=== PATIENT | male | born 1930 | race Caucasian/White ===

== ENCOUNTER 2017-01-31 15:40 | Inpatient (IN) | payer OTHER ==
[~2017-01-31] VITALS: Ht 177.8 cm; Wt 70.3 kg
[~2017-01-31 15:40] MED LIST: DONE5TAB3 PO; HYDR12.585 PO; LEVO112T5 PO; TRIA50CA PO
--- NOTE | 2017-01-31 15:41 | NUR ---
Arrived via BLS ambulance with compliant of increased shaking. Febrile on arrival 102.4F. Patient to ER bed 6 to gown for evaluation. Side rails up. Report given to Carmencita SANTIAGO.
[2017-01-31 15:47] VITALS: BP 126/68; PULSE 104; RESP 20; TEMP 102.4; O2SAT 99
[2017-01-31] MEDS ORDERED: PIPERACILLIN/TAZO 3.38 GM in NS 50 ML IV ONE (16:00)
--- NOTE | 2017-01-31 16:05 | NUR ---
ER Dr. Cannon at bedside examining patient.
[2017-01-31 16:26] LABS: ANION GAP 10 (5-15); CALCIUM 8.9 mg/dL (8.4-11.0); CHLORIDE 101 mmol/L (98-107); CREATININE 1.63 mg/dL (0.55-1.30); GLUCOSE 142 mg/dL (70-99); SODIUM SERUM 138 mmol/L (136-145); UREA NITROGEN, BLOOD 32 mg/dL (8-21)
[2017-01-31 16:30] LABS: BASOPHILS # (AUTO) 0.1 K/uL (0.0-0.2); BASOPHILS % (AUTO) 0.3 % (0.0-2.0); EOSINOPHILS % (AUTO) 0.1 % (0.0-4.0); HEMATOCRIT 30.5 % (36-54); HEMOGLOBIN 9.9 g/dL (14.0-18.0); LYMPHOCYTES # (AUTO) 0.3 K/uL (1.0-5.5); MEAN CORPUSCULAR HEMOGLOBIN 25 pg (27-31); MEAN CORPUSCULAR HGB CONC 32 % (32-36); MEAN CORPUSCULAR VOLUME 78 fL (79.0-98.0); MONOCYTES # (AUTO) 0.9 K/uL (0.0-1.0); MONOCYTES % (AUTO) 5.3 % (1.7-9.3); NEUTROPHILS # (AUTO) 15.9 K/uL (1.8-7.7); NEUTROPHILS % (AUTO) 92.3 % (40.0-70.0); PLATELET COUNT (AUTO) 212 K/uL (130-430); RED BLOOD CELL COUNT(AUTO) 3.93 MIL/uL (4.2-6.2); RED CELL DISTRIBUTION WIDTH 20.4 % (9.0-15.0); WHITE BLOOD COUNT (AUTO) 17.2 K/uL (4.8-10.8)
[2017-01-31] MEDS ORDERED: ACETAMINOPHEN 650 MG/20.3 ML UDC PO ONE (16:30)
[2017-01-31 16:31] LABS: ALANINE AMINOTRANSFERASE 25 U/L (12-78); ALBUMIN 3.2 g/dL (3.4-4.8); ASPARTATE AMINOTRANSFERASE 32 U/L (10-37); INR 1.1 (0.80-1.20); PROTHROMBIN TIME 11.6 SECS (9.5-12.5); TOTAL BILIRUBIN 0.5 mg/dL (0.0-1.0)
[2017-01-31 16:44] LABS: BILIRUBIN,URINE NEGATIVE (NEGATIVE); CLARITY/URINE CLEAR (CLEAR); COLOR,URINE YELLOW (YELLOW); GLUCOSE,URINE NEGATIVE (NEGATIVE); KETONES,URINE TRACE (NEGATIVE); LEUKOCYTE ESTERASE ,URINE TRACE (NEGATIVE); NITRITE, URINE NEGATIVE (NEGATIVE); PH,URINE 5.5 (5.0-8.0); PROTEIN URINE NEGATIVE (NEGATIVE); UROBILINOGEN,URINE 0.2 (0.2-1.0)
[2017-01-31 17:00] LABS: BLOOD, URINE TRACE (NEGATIVE)
--- NOTE | 2017-01-31 17:03 | NUR ---
Michael tamez in ED - 01/31/17 at 1920 by [email or web address] Pt on stable condition, shaking at this time, tylenol administered for fever control.
--- NOTE | 2017-01-31 17:03 | NUR ---
Pt on stable condition, A&OX4,pt requesting water, VS WNL.
[2017-01-31] MEDS ORDERED: POTASSIUM CHLORIDE 20 MEQ TAB.PRT.SR PO ONE (17:15)
[2017-01-31] MEDS ORDERED: POTASSIUM CHLORIDE 40 MEQ in NS 250 ML IV ONE (17:15)
[2017-01-31] MEDS ORDERED: ALBUTEROL SULFATE 0.083% 2.5 MG/3 ML VIAL.NEB INH ONE (17:15)
[2017-01-31 17:25] LABS: BACTERIA,URINE FEW /HPF (None Seen); MUCUS,URINE 1+ /LPF (None Seen); RBC,URINE 0-3 /HPF (0-3); WBC,URINE 0-3 /HPF (0-3)
[2017-01-31] MEDS ORDERED: *LOVENOX 1MG/KG Q12H/PHARMACY XX ONE (18:30)
--- NOTE | 2017-01-31 18:55 | NUR ---
ADMIT NOTE Received pt from ER to the floor with a diagnosis of cellulitis, sepsis. Admission process initiated. patient oriented to pain management, safety and call light-teach back done.
--- NOTE | 2017-01-31 19:00 | NUR ---
Patient will be admitted to care of [facility]. Admitted to medsurg unit. Will go to room 121A. Belongings list completed. Summary report printed. Report given to Admitting RN.
[2017-01-31 19:42] VITALS: BP 114/50; PULSE 82; RESP 18; TEMP 100.1; O2SAT 95
--- NOTE | 2017-01-31 19:50 | NUR ---
initial nursing notes: Patient is awake. Patient's IV access on the right AC intact. Patient's RLE is red and swollen. Patient is being admitted for cellulitis and sepsis. Patient has history of Parkinson and dementia. Patient has scabs on the scalp.
--- NOTE | 2017-01-31 21:50 | NUR ---
nursing rounds: Reoriented patient to place and reason for being in the hospitalized, since patient has periods of forgetfulness. Instructed patient regarding proper use of call light.
[2017-01-31] MEDS: VANCOMYCIN HCL 1,000 MG in NS 250 ML IV SCH (22:03)
[2017-01-31] MEDS: D5/0.45 NS 1,000 ML IV SCH (22:04)
[2017-01-31] MEDS ORDERED: ACETAMINOPHEN 500 MG TABLET PO PRN ×2 (22:30)
[2017-01-31] MEDS: ENOXAPARIN SODIUM 80 MG/0.8 ML SYRINGE SUBCUT SCH (22:31)
--- NOTE | 2017-01-31 23:50 | NUR ---
nursing rounds: Patient is asleep in bed. Kept bed alarm on.
[2017-02-01 00:03] VITALS: BP 94/47; PULSE 78; RESP 18; TEMP 99.8; O2SAT 97
[2017-02-01] MEDS: cefTRIAXone 1 GM IVPB PREMIX 50 ML IV SCH ×2 (00:25→18:00)
--- NOTE | 2017-02-01 01:50 | NUR ---
nursing rounds: Patient calmly resting in bed. Patient has no shortness of breath.
[2017-02-01 03:34] VITALS: BP 104/53; PULSE 64; RESP 16; TEMP 99.8; O2SAT 94
--- NOTE | 2017-02-01 03:50 | NUR ---
nursing rounds: Patient is sleeping in bed. Kept siderails up X 3 for patient's safety.
--- NOTE | 2017-02-01 05:50 | NUR ---
nursing rounds: Patient calmly resting in bed. Patient has no respiratory distress.
[2017-02-01 06:29] LABS: HEMOGLOBIN 9.3 g/dL (14.0-18.0); MEAN CORPUSCULAR HEMOGLOBIN 25 pg (27-31); MEAN CORPUSCULAR HGB CONC 31 % (32-36); MEAN CORPUSCULAR VOLUME 80 fL (79.0-98.0); PLATELET COUNT (AUTO) 203 K/uL (130-430); RED BLOOD CELL COUNT(AUTO) 3.74 MIL/uL (4.2-6.2); WHITE BLOOD COUNT (AUTO) 19.7 K/uL (4.8-10.8)
[2017-02-01 06:35] LABS: CREATININE 1.72 mg/dL (0.55-1.30); POTASSIUM 3.7 mmol/L (3.5-5.1)
[2017-02-01 07:01] LABS: ANION GAP 9 (5-15); CALCIUM 8.7 mg/dL (8.4-11.0); CHLORIDE 105 mmol/L (98-107); GLUCOSE 112 mg/dL (70-99); PHOSPHORUS 3.5 mg/dL (2.7-4.5); SODIUM SERUM 141 mmol/L (136-145); UREA NITROGEN, BLOOD 31 mg/dL (8-21)
--- NOTE | 2017-02-01 07:28 | NUR ---
closing nursing notes: Patient calmly resting in bed. Patient is in no acute respiratory distress. Vital signs stable. No episodes of fall and no injuries throughout the echocardiograph tech. Provided nursing report to incoming morning shift nurse, JAKC Beltrán, at patient's bedside.
[2017-02-01 07:49] VITALS: BP 99/51; PULSE 75; RESP 18; TEMP 99.2; O2SAT 94
--- NOTE | 2017-02-01 08:00 | NUR ---
NOTE PT SITTING UP IN BED EATING HIS BREAKFAST. NO SOB/RESP DISTRESS OR PAIN/DISCOMFORT NOTED AT THIS TIME. IVF'S INFUSING WELL THROUGH RIGHT IV SITE. PT HAS SOME SCABS ON HIS FOREHEAD WHICH ARE DRY AND INTACT. PT'S RT. LOWER LEG AND MESFIN AREAS ARE REDDENED, Z-GUARD APPLIED AND AREAS KEPT DRY. NO NEEDS NOTED AT THIS TIME. CALL LIGHT WITHIN REACH.
[2017-02-01] MEDS: ENOXAPARIN SODIUM 80 MG/0.8 ML SYRINGE SUBCUT SCH (08:19)
[2017-02-01 08:29] LABS: ATYPICAL LYMPHOCYTES % 0 % (0-0); BAND % (MANUAL) 4 % (0-6); BASOPHILS % (MANUAL) 0 % (0-2); EOSINOPHILS % (MANUAL) 0 % (0-7); LYMPHOCYTES % (MANUAL) 9 % (20-46); MONOCYTES % (MANUAL) 6 % (0-11)
--- NOTE | 2017-02-01 08:55 | NUR ---
Nutrition Update Kristofer Scale 17 noted. Pt admitted for cellulitis, sepsis. Diet: 2gm Na BMI: 22.2 kg/m2 RD to follow per nutrition care standards.
[2017-02-01] MEDS ORDERED: PANTOPRAZOLE SODIUM 40 MG TAB PO SCH (09:00)
--- NOTE | 2017-02-01 10:00 | NUR ---
NOTE PT RESTING IN BED. NO NEEDS NOTED AT THIS TIME. CALL LIGHT WITHIN REACH. PT CHECKED ON Q1' AND PRN FOR CARE AND NEEDS.
[2017-02-01 11:31] VITALS: BP 103/48; PULSE 68; RESP 19; TEMP 98.4; O2SAT 93
--- NOTE | 2017-02-01 13:00 | NUR ---
NOTE PT'S DAUGHTER JUSTICE HAS BEEN AT BEDSIDE VISITING WITH HER FATHER. PT'S DAUGHTER STATED THAT HER FATHER HAS NOT BEEN TAKING HIS MEDICATIONS THE LAST 4 DAYS. PT SAT UP IN BED AND ATE SOME OF HIS LUNCH TRAY. PT HAS BEEN HAVING INCONTINENCE CARE Q1' AND PRN NEEDED FOR INCONTINENCE OF URINE AND STOOL. NO SOB/RESP DISTRESS OR PAIN/DISCOMFORT NOTED AT THIS TIME. CALL LIGHT WITHIN REACH.
[2017-02-01 14:03] VITALS: Ht 177.8 cm; Wt 70.3 kg
[2017-02-01 15:45] VITALS: BP 107/50; PULSE 69; RESP 19; TEMP 100.3; O2SAT 96
--- NOTE | 2017-02-01 15:59 | NUR ---
NOTE PT'S DAUGHTER WAS CALLED AND NOTIFIED THAT PT'S MEDICATION LIST FROM PHARMACY HAS NOT BEEN RECEIVED OF THIS TIME. PT'S DAUGHTER WILL CALL PHARMACY AGAIN TO RE FAX THE PT'S MEDICATION LIST TO US. PT'S DAUGHTER HAD GONE HOME AROUND HALF AN HOUR AGO. CALL LIGHT WITHIN REACH.
[2017-02-01] MEDS ORDERED: PANT40TA4 PO (17:05)
[2017-02-01] MEDS ORDERED: APIX2.5T PO (17:05)
[2017-02-01] MEDS: D5/0.45 NS 1,000 ML IV SCH ×2 (17:48→23:10)
--- NOTE | 2017-02-01 18:10 | NUR ---
NOTE PT RESTING IN BED. PT ATE HIS DINNER AND NOW RESTING. NO SOB/RESP DISTRESS OR PAIN/DISCOMFORT NOTED AT THIS TIME. PT WAS CHECKED ON Q1' AND PRN FOR NEEDS AND CARE. PT GIVEN HYGIENE CARE FOR INCONTINENCE ALL SHIFT. NO NEEDS NOTED AT THIS TIME. IVF'S INFUSING WELL THROUGH RIGHT IV SITE. CALL LIGHT WITHIN REACH AT THIS TIME.
[2017-02-01] MEDS: VANCOMYCIN HCL 1,000 MG in NS 250 ML IV SCH (18:32)
--- NOTE | 2017-02-01 19:30 | NUR ---
initial nursing notes: Patient is awake. Patient watching television. Elevated patient's RLE to decrease swelling. Patient's IV fluid is infusing on the right hand IV access.
[2017-02-01 20:15] VITALS: BP 105/52; PULSE 67; RESP 16; TEMP 99.9; O2SAT 94
--- NOTE | 2017-02-01 21:30 | NUR ---
nursing rounds: Patient has periods of forgetfulness. Reoriented patient to place, time and reason for being in the hospital. Kept bed alarm on.
[2017-02-01] MEDS: APIXABAN 2.5 MG TABLET PO SCH (22:26)
[2017-02-01] MEDS: DONEPEZIL HCL 5 MG TABLET (ARICEPT) PO SCH (22:26)
[2017-02-01] MEDS: AMPICILLIN SODIUM/SULBACTAM NA 1.5 GM in NS 50 ML IV SCH (23:10)
--- NOTE | 2017-02-01 23:30 | NUR ---
nursing rounds: Patient is sleeping in bed. Kept siderails up X 3 for patient's safety.
[2017-02-02 00:16] VITALS: BP 108/58; PULSE 68; RESP 18; TEMP 99.2; O2SAT 97
--- NOTE | 2017-02-02 01:30 | NUR ---
nursing rounds: Patient woke up trying to get out of bed to go to the bathroom to void. Patient stated that he forgot, he cannot ambulate due to his swollen RLE. Reminded patient that a urinal has been provided at the patient's bedside. Patient able to use urinal.
--- NOTE | 2017-02-02 01:30 | NUR ---
nursing rounds: Patient is sleeping in bed. Kept siderails up X 3 for patient's safety.
--- NOTE | 2017-02-02 03:30 | NUR ---
nursing rounds: Patient is asleep in bed. Patient has no shortness of breath.
[2017-02-02 04:25] VITALS: BP 116/62; PULSE 72; RESP 17; TEMP 98.9; O2SAT 98
--- NOTE | 2017-02-02 05:30 | NUR ---
nursing rounds: Patient calmly resting in bed. Patient has no respiratory distress.
[2017-02-02] MEDS: LEVOTHYROXINE SODIUM 0.112 MG TABLET PO SCH (06:10)
[2017-02-02 06:48] LABS: BASOPHILS % (AUTO) 0.1 % (0.0-2.0); EOSINOPHILS # (AUTO) 0.1 K/uL (0.0-0.4); EOSINOPHILS % (AUTO) 0.4 % (0.0-4.0); HEMATOCRIT 28.7 % (36-54); HEMOGLOBIN 8.9 g/dL (14.0-18.0); LYMPHOCYTES # (AUTO) 0.8 K/uL (1.0-5.5); LYMPHOCYTES % (AUTO) 4.7 % (20.5-51.5); MEAN CORPUSCULAR HEMOGLOBIN 25 pg (27-31); MEAN CORPUSCULAR HGB CONC 31 % (32-36); MEAN CORPUSCULAR VOLUME 80 fL (79.0-98.0); MONOCYTES # (AUTO) 0.9 K/uL (0.0-1.0); MONOCYTES % (AUTO) 5.5 % (1.7-9.3); NEUTROPHILS % (AUTO) 89.3 % (40.0-70.0); PLATELET COUNT (AUTO) 190 K/uL (130-430); WHITE BLOOD COUNT (AUTO) 16.8 K/uL (4.8-10.8)
[2017-02-02 07:01] LABS: ALANINE AMINOTRANSFERASE 34 U/L (12-78); ALBUMIN 2.2 g/dL (3.4-4.8); ANION GAP 6 (5-15); ASPARTATE AMINOTRANSFERASE 88 U/L (10-37); CALCIUM 8.3 mg/dL (8.4-11.0); CHLORIDE 105 mmol/L (98-107); CREATININE 1.34 mg/dL (0.55-1.30); GLUCOSE 111 mg/dL (70-99); POTASSIUM 3.2 mmol/L (3.5-5.1); SODIUM SERUM 139 mmol/L (136-145); TOTAL BILIRUBIN 0.4 mg/dL (0.0-1.0); UREA NITROGEN, BLOOD 26 mg/dL (8-21)
--- NOTE | 2017-02-02 07:31 | NUR ---
closing nursing notes: Patient calmly resting in bed. Patient is in no acute respiratory distress. Vital signs stable. No episodes of fall and no injuries throughout the overnight cashier. Provided nursing report to incoming morning shift nurse, JACK Beltrán, at patient's bedside.
[2017-02-02 08:00] VITALS: BP 148/67; PULSE 82; RESP 18; TEMP 99; O2SAT 99
--- NOTE | 2017-02-02 08:00 | NUR ---
NOTE PT SITTING UP IN BED EATING HIS BREAKFAST AT THIS TIME. NO SOB/RESP DISTRESS OR PAIN/DISCOMFORT NOTED AT THIS TIME. IVF'S INFUSING WELL THROUGH RIGHT HAND IV SITE. CALL LIGHT WITHIN REACH.
[2017-02-02] MEDS: AMPICILLIN SODIUM/SULBACTAM NA 1.5 GM in NS 50 ML IV SCH ×2 (09:19→21:20)
[2017-02-02] MEDS: APIXABAN 2.5 MG TABLET PO SCH ×2 (09:19→21:19)
[2017-02-02] MEDS: PANTOPRAZOLE SODIUM 40 MG TAB PO SCH (09:20)
[2017-02-02 11:44] VITALS: BP 117/69; PULSE 78; RESP 19; TEMP 97.2; O2SAT 95
--- NOTE | 2017-02-02 12:00 | NUR ---
NOTE DR DEGROOT WAS ON THE FLOOR. ASSESSMENT WAS COMPLETED AT THIS TIME. PT WAS ASSISTED OOB TO BSC BY KAYLEEN AND THEN ASSISTED 2 PERSON ASSIST BACK TO BED. PT DENIES ANY NEEDS AT THIS TIME. CALL LIGHT WITHIN REACH.
--- NOTE | 2017-02-02 14:00 | NUR ---
NOTE PT SITTING UP IN BED. PT'S AND DAUGHTER ARE AT BEDSIDE AT THIS TIME VISITING. UPDATE ON PT'S STATUS GIVEN TO PT'S DAUGHTER. PT DENIES ANY NEEDS AT THIS TIME. PT NEXT TO NURSES' STATION AND UNDER CLOSE OBSERVATION FOR NEEDS AND CARE. CALL LIGHT WITHIN REACH.
[2017-02-02 15:36] VITALS: BP 136/86; PULSE 82; RESP 19; TEMP 98.4; O2SAT 99
[2017-02-02 16:03] LABS: ALANINE AMINOTRANSFERASE 49 U/L (12-78); ALBUMIN 2.5 g/dL (3.4-4.8); ANION GAP 5 (5-15); ASPARTATE AMINOTRANSFERASE 83 U/L (10-37); CALCIUM 8.7 mg/dL (8.4-11.0); CHLORIDE 102 mmol/L (98-107); CREATININE 1.27 mg/dL (0.55-1.30); GLUCOSE 128 mg/dL (70-99); POTASSIUM 3.5 mmol/L (3.5-5.1); SODIUM SERUM 134 mmol/L (136-145); TOTAL BILIRUBIN 0.3 mg/dL (0.0-1.0); UREA NITROGEN, BLOOD 24 mg/dL (8-21)
--- NOTE | 2017-02-02 18:10 | NUR ---
note pt was instructed all shift to call for assistance before getting oob. pt forgets easily and tries to get oob. pt next to nurses' station and under close observation at all times. pt now resting in bed and ivf's infusing well through right iv site. no sob/resp distress or pain/discomfort noted at this time. pt uses urinal sometimes, and sometimes has incontinence in bed and on the floor. no needs noted at this time. pt has bed alarm on and 3 side rails for safety precautions at this time. call light within reach.
[2017-02-02] MEDS: VANCOMYCIN HCL 1,000 MG in NS 250 ML IV SCH (18:39)
[2017-02-02] MEDS: D5/0.45 NS 1,000 ML IV SCH (18:39)
[2017-02-02 20:23] VITALS: BP 137/82; PULSE 82; RESP 20; TEMP 98.2; O2SAT 97
--- NOTE | 2017-02-02 21:15 | NUR ---
Patient awake verbally indicative HOB elevated , fall precautions implemented patient instructed on use of call system & helpful / .
[2017-02-02] MEDS: DONEPEZIL HCL 5 MG TABLET (ARICEPT) PO SCH (21:19)
--- NOTE | 2017-02-03 | NUR ---
Right leg swelling edema redness is noted assist for position change pillows used for off loading & helpful / .
[2017-02-03 00:06] VITALS: BP 139/79; PULSE 82; RESP 18; TEMP 99.8; O2SAT 95
--- NOTE | 2017-02-03 01:08 | NUR ---
Hourly Rounding patient resting this hour respirations regular & unlabored assist for position as needed / .
--- NOTE | 2017-02-03 01:25 | NUR ---
Reposition & Turning Z Guard applied to fabienne buttocks skin irritation kept clean & dry as needed / .
[2017-02-03 03:37] VITALS: BP 137/75; PULSE 84; RESP 18; TEMP 98.6; O2SAT 96
--- NOTE | 2017-02-03 04:06 | NUR ---
assist patient with use of bed dejesus tolerated / .
--- NOTE | 2017-02-03 04:37 | NUR ---
Fall Measures implemented patient does climb out of bed / monitor .
[2017-02-03] MEDS: D5/0.45 NS 1,000 ML IV SCH (06:45)
[2017-02-03] MEDS: LEVOTHYROXINE SODIUM 0.112 MG TABLET PO SCH (06:46)
[2017-02-03 07:21] LABS: BASOPHILS % (AUTO) 0.2 % (0.0-2.0); EOSINOPHILS # (AUTO) 0.1 K/uL (0.0-0.4); EOSINOPHILS % (AUTO) 0.6 % (0.0-4.0); HEMATOCRIT 31.9 % (36-54); HEMOGLOBIN 9.9 g/dL (14.0-18.0); LYMPHOCYTES # (AUTO) 0.7 K/uL (1.0-5.5); LYMPHOCYTES % (AUTO) 5.8 % (20.5-51.5); MEAN CORPUSCULAR HEMOGLOBIN 25 pg (27-31); MEAN CORPUSCULAR HGB CONC 31 % (32-36); MEAN CORPUSCULAR VOLUME 80 fL (79.0-98.0); MONOCYTES # (AUTO) 0.7 K/uL (0.0-1.0); MONOCYTES % (AUTO) 5.8 % (1.7-9.3); NEUTROPHILS # (AUTO) 11.1 K/uL (1.8-7.7); NEUTROPHILS % (AUTO) 87.6 % (40.0-70.0); PLATELET COUNT (AUTO) 226 K/uL (130-430); RED BLOOD CELL COUNT(AUTO) 3.99 MIL/uL (4.2-6.2); RED CELL DISTRIBUTION WIDTH 20.5 % (9.0-15.0); WHITE BLOOD COUNT (AUTO) 12.6 K/uL (4.8-10.8)
[2017-02-03 07:32] LABS: ALANINE AMINOTRANSFERASE 43 U/L (12-78); ALBUMIN 2.4 g/dL (3.4-4.8); ANION GAP 7 (5-15); ASPARTATE AMINOTRANSFERASE 66 U/L (10-37); CALCIUM 8.7 mg/dL (8.4-11.0); CHLORIDE 103 mmol/L (98-107); CREATININE 1.16 mg/dL (0.55-1.30); GLUCOSE 108 mg/dL (70-99); POTASSIUM 3.1 mmol/L (3.5-5.1); SODIUM SERUM 138 mmol/L (136-145); TOTAL BILIRUBIN 0.5 mg/dL (0.0-1.0); TOTAL PROTEIN, SERUM 6.5 g/dL (6.4-8.3); UREA NITROGEN, BLOOD 18 mg/dL (8-21)
[2017-02-03 08:20] VITALS: BP 124/72; PULSE 83; RESP 16; TEMP 99.1; O2SAT 96
--- NOTE | 2017-02-03 08:21 | NUR ---
AM ROUNDS Patient received, alert awake and oriented x2, patient has periods of forgetfulness. VSS. Patient denies pain at this time. IV site patent intact and infusing fluids as ordered. Patient tolerating breakfast well. Right leg swelling noted, warm to touch, elevated with pillow support. Plan of care discussed, patient said "okay". Safety and fall precautions in place, call light within reach, patient closest to nurses station, side rails upx3. Will continue to monitor.
[2017-02-03] MEDS: APIXABAN 2.5 MG TABLET PO SCH (09:20)
[2017-02-03] MEDS: PANTOPRAZOLE SODIUM 40 MG TAB PO SCH (09:20)
[2017-02-03] MEDS: AMPICILLIN SODIUM/SULBACTAM NA 1.5 GM in NS 50 ML IV SCH (09:20)
--- NOTE | 2017-02-03 10:09 | NUR ---
ROUNDS Patient able to self reposition with minimal assistance. Daughter at bedside at this time. Patient alert awake and oriented x3. Reoriented patient to time, verbalized understanding. Right lower extremity elevated with pillow support, patient requested slipper be put on at this time. No further needs. Safety and fall precautions in place, call light within reach. Will continue to monitor.
--- NOTE | 2017-02-03 12:00 | NUR ---
ROUNDS Late entry due to patient care. Patient attempting to get out of bed, educated patient on safety precautions. Encouraged patient to call for assistance, patient verbalized understanding. Safety and fall precautions in place, call light within reach, side rails upx3, bed alarm on patient closest to nurses station. Will continue to monitor.
[2017-02-03 12:26] VITALS: BP 140/69; PULSE 83; RESP 22; TEMP 99.5; O2SAT 97
[2017-02-03] MEDS ORDERED: AMOXICILLIN/CLAVULANATE POTASSIUM 250 MG/5 ML, 75 ML BTL PO SCH (14:00)
--- NOTE | 2017-02-03 14:45 | NUR ---
ROUNDS Patient sleeping at this time, chest rise noted. IVF infusing as ordered. No further needs at this time. Spoke with patients daughter regarding discharge, per family patient is able to walk and use restroom independently. Patient having periods of confusion at this time. property claims manager notified, awaiting call back regarding discharge. Will continue to monitor. Safety and fall precautions in place, call light within reach.
[2017-02-03] MEDS ORDERED: POTASSIUM CHLORIDE 20 MEQ TAB.PRT.SR PO ONE (15:30)
[2017-02-03 16:17] VITALS: BP 139/90; PULSE 90; RESP 20; TEMP 98; O2SAT 95
--- NOTE | 2017-02-03 16:19 | NUR ---
ROUNDS Spoke with Yasmin case folder, patient to be transferred to [facility] room 127A. RN to give report to [phone]. Patient changed and awaiting discharge.
[2017-02-03 16:25] VITALS: BP 139/90; PULSE 90; RESP 20; TEMP 98; O2SAT 95
--- NOTE | 2017-02-03 17:08 | NUR ---
PT TRANSFERRED Report given to Patsy at [facility]. Transfer packet with Transfer Orders and Medication Reconciliation form given to EMT with report. Exitcare provided. [facility] ID band removed, replaced with ID band with pt's name and . IV catheter removed, intact and dressing applied, no active bleeding. All belongings sent with patient. Patient left floor via gurney escorted by EMT in no distress. Consent given via telephone, verified with second RN.
== END 2017-02-03 17:05 | DRG 872 ==
LOC: SED 15:40 → SMU 18:24
PROVIDERS: ADMIT Internal Medicine Hospice and Palliative Medicine; ATTEND Internal Medicine Hospice and Palliative Medicine
DX: A41.9 Sepsis, unspecified organism (principal); L03.115 Cellulitis of right lower limb; I82.401 Acute embolism and thrombosis of unspecified deep veins of right lower extremity; N17.9 Acute kidney failure, unspecified; E78.5 Hyperlipidemia, unspecified; N18.2 Chronic kidney disease, stage 2 (mild); I12.9 Hypertensive chronic kidney disease with stage 1 through stage 4 chronic kidney disease, or unspecified chronic kidney disease; I89.0 Lymphedema, not elsewhere classified; F03.90 Unspecified dementia, unspecified severity, without behavioral disturbance, psychotic disturbance, mood disturbance, and anxiety
CPT/HCPCS: 36415; 71010; 80048; 80053; 81000-TC; 83605; 83735-TC; 84100-TC; 85007; 85025; 85027; 85610-TC; 87040-TC; 87086; 93005; 93971; 94640; 96365; 96367; 99285; J0295; J0696; J3370; J3480; J7050

== ENCOUNTER 2017-03-14 11:45 | Inpatient (IN) | payer OTHER ==
[2017-02-01 14:03] VITALS: Ht 177.8 cm; Wt 72.6 kg
[~2017-03-14] VITALS: Ht 177.8 cm; Wt 72.6 kg
[~2017-03-14 11:45] MED LIST changes: +APIX2.5T PO; +PANT40TA4 PO
[2017-03-14 11:50] VITALS: BP 132/68; PULSE 76; RESP 19; TEMP 97.1; O2SAT 98
--- NOTE | 2017-03-14 11:50 | NUR ---
Placed in room 02. Placed on monitor worker, blood pressure machine and pulse oximeter. To gown for exam. Side rails up.
--- NOTE | 2017-03-14 12:00 | NUR ---
Pt arrived to the ED by walk in with chief complaint of left lower leg swelling and redness. Pt reports edema present x 1 month with new onset of redness x 3 days. Denies chest pain or SOB. Circulation and sensation present to the extremity. Denies pain. Will continue to monitor
--- NOTE | 2017-03-14 12:07 | NUR ---
Dr. Woody at bedside for evaluation
[2017-03-14] MEDS ORDERED: PRIM50TA27 PO (12:39)
[2017-03-14] MEDS ORDERED: CARB-64 PO (12:39)
[2017-03-14] MEDS ORDERED: FLUT1DIS3 INH (12:39)
[2017-03-14] MEDS ORDERED: SIMV20TA2 PO (12:39)
[2017-03-14] MEDS ORDERED: LISI-209 PO (12:39)
[2017-03-14] MEDS ORDERED: MONT10TA25 PO (12:39)
--- NOTE | 2017-03-14 12:39 | NUR ---
Medication reconciliation completed with information provided by Atria and family. Any prior medication reconciliation on file was reviewed and corrected.
[2017-03-14 12:55] LABS: BASOPHILS % (AUTO) 0.6 % (0.0-2.0); EOSINOPHILS # (AUTO) 0.3 K/uL (0.0-0.4); EOSINOPHILS % (AUTO) 5.2 % (0.0-4.0); HEMATOCRIT 28.7 % (36-54); HEMOGLOBIN 9.1 g/dL (14.0-18.0); LYMPHOCYTES # (AUTO) 0.9 K/uL (1.0-5.5); LYMPHOCYTES % (AUTO) 16.7 % (20.5-51.5); MEAN CORPUSCULAR HEMOGLOBIN 25 pg (27-31); MEAN CORPUSCULAR HGB CONC 32 % (32-36); MEAN CORPUSCULAR VOLUME 79 fL (79.0-98.0); MONOCYTES # (AUTO) 0.8 K/uL (0.0-1.0); MONOCYTES % (AUTO) 14.8 % (1.7-9.3); NEUTROPHILS # (AUTO) 3.4 K/uL (1.8-7.7); NEUTROPHILS % (AUTO) 62.7 % (40.0-70.0); PLATELET COUNT (AUTO) 250 K/uL (130-430); RED BLOOD CELL COUNT(AUTO) 3.65 MIL/uL (4.2-6.2); RED CELL DISTRIBUTION WIDTH 16.7 % (9.0-15.0); WHITE BLOOD COUNT (AUTO) 5.4 K/uL (4.8-10.8)
[2017-03-14 13:09] LABS: PROTHROMBIN TIME 11.2 SECS (9.5-12.5)
[2017-03-14 13:19] LABS: ALANINE AMINOTRANSFERASE 11 U/L (12-78); ASPARTATE AMINOTRANSFERASE 28 U/L (10-37); CALCIUM 8.8 mg/dL (8.4-11.0); CREATININE 1.75 mg/dL (0.55-1.30); GLUCOSE 111 mg/dL (70-99); SODIUM SERUM 138 mmol/L (136-145); TOTAL BILIRUBIN 0.3 mg/dL (0.0-1.0); UREA NITROGEN, BLOOD 31 mg/dL (8-21)
[2017-03-14 13:25] LABS: ANION GAP 4 (5-15); CHLORIDE 105 mmol/L (98-107)
--- NOTE | 2017-03-14 14:03 | NUR ---
ADMISSION NOTE Received patient from ER via edwige, received report from LONNIE SANTIAGO. Patient admitted with diagnosis of DVT/CELLULITIS. Patient oriented to hospital routine, call light, toileting and safety-patient verbalized understanding.
--- NOTE | 2017-03-14 14:05 | NUR ---
Patient will be admitted to care of Dr. Jimenez. Admitted to M/S unit. Will go to room 106A. Summary report printed. Report given to JACK Rodrigues.Transfer to [facility]. IV present no sign or symptom of infiltration.
[2017-03-14 14:37] VITALS: BP 150/59; PULSE 84; RESP 18; TEMP 97.8; O2SAT 98
--- NOTE | 2017-03-14 15:20 | NUR ---
NOTE SPOKE TO DR HUERTA AND NEW ORDER FOR REGULAR DIET WAS NOTED AND CARRIED OUT. PATIENT IS AWARE
[2017-03-14 16:00] VITALS: BP 145/80; PULSE 82; RESP 16; TEMP 97.4; O2SAT 97
--- NOTE | 2017-03-14 16:00 | NUR ---
1600 NOTE PATIENT RESTING COMFORTABLY, NO COMPLAINTS OF PAIN OR DISCOMFORT AT THIS TIME. NO NOTABLE SIGNS OF DISTRESS AT THIS TIME. PATIENTS BED IN LOWEST POSITION, CALL LIGHT WITHIN REACH, SIDE RAILS UP AND BED ALARM IS ON. PATIENT BELONGINGS ARE WITHIN REACH WELL THE URINAL. PATIENT WEARING DEPENDS BRIEFS, EDUCATED ON THE RISK OF SKIN BREAKDOWN ASSOCIATED AND THAT THE HOSPITAL DOES NOT PROVIDE DEPENDS. VERBALIZES UNDERSTANDING. WILL CONTINUE TO MONITOR FOR CHANGES IN STATUS.
[2017-03-14] MEDS ORDERED: VANCOMYCIN HCL 750 MG in NS 250 ML IV SCH (17:00)
[2017-03-14] MEDS ORDERED: MONTELUKAST 10 MG TABLET PO SCH (18:00)
--- NOTE | 2017-03-14 18:32 | NUR ---
1800 NOTE/[id number] NOTE PATIENT RESTING COMFORTABLY, NO COMPLAINTS OF PAIN OR DISCOMFORT AT THIS TIME. NO NOTABLE SIGNS OF DISTRESS AT THIS TIME. PATIENTS BED IN LOWEST POSITION, CALL LIGHT WITHIN REACH, SIDE RAILS UP AND BED ALARM IS ON. PATIENT BELONGINGS ARE WITHIN REACH WELL THE URINAL. WILL CONTINUE TO MONITOR FOR CHANGES IN STATUS. WAITING TO GIVE REPORT TO ONCOMING NURSE.
[2017-03-14 20:00] VITALS: BP 117/64; PULSE 80; RESP 16; TEMP 97.1; O2SAT 95
--- NOTE | 2017-03-14 20:00 | NUR ---
STARTING COMPONENT ASSEMBLER SUPERVISOR NOTE Patient in bed resting comfortably. No S/S of respiratory distress or pain noted. Report received from the day shift nurse. VS within normal limits. Fall precautions in place. Call light and urinal within reach.
[2017-03-14] MEDS ORDERED: PRIMIDONE 50 MG TABLET PO SCH (21:00)
[2017-03-14] MEDS ORDERED: DONEPEZIL HCL 5 MG TABLET (ARICEPT) PO SCH (21:00)
[2017-03-14] MEDS ORDERED: SIMVASTATIN 20 MG TABLET PO SCH (21:00)
--- NOTE | 2017-03-14 22:00 | NUR ---
2200 NOTE Patient in bed resting. He pulled his IV by accident rolling in bed. He also had a big BM. The nurse and the CARTON INSPECTOR changed the patient, new IV was inserted this time on the left forearm #22. No S/S of any distress noted, no pain. Fall precautions in place.
[2017-03-14] MEDS: APIXABAN 2.5 MG TABLET PO SCH (22:20)
[2017-03-14] MEDS: CARBIDOPA/LEVODOPA CR 50/200 MG TAB PO SCH (22:21)
--- NOTE | 2017-03-15 00:22 | NUR ---
NOTE Patient in bed sleeping. No S/S of respiratory distress or pain noted. Fall precautions in place. IVF running smoothly, urinal and call light within reach.
[2017-03-15 00:27] VITALS: BP 120/60; PULSE 82; RESP 18; TEMP 97.8; O2SAT 98
--- NOTE | 2017-03-15 02:51 | NUR ---
NOTE Patient in bed sleeping. No S/S of respiratory distress noted, no pain. Fall precautions in place. Call light and urinal within reach. IVF NS 0.9% running at KVO.
[2017-03-15 04:08] VITALS: BP 127/69; PULSE 76; RESP 18; TEMP 97.6; O2SAT 97
--- NOTE | 2017-03-15 04:43 | NUR ---
NOTE Patient in bed sleeping. No pain or respiratory distress noted. Bed in lowest position, call light within reach.
--- NOTE | 2017-03-15 06:54 | NUR ---
CLOSING NOTE Patient in bed sleeping. No S/S of distress or pain noted. IVF NS 0.9% at 5cc/hr running smoothly. Fall precautions in place. Patient's needs met throughout the shift. Report will be given to the upcoming day shift nurse.
[2017-03-15] MEDS ORDERED: LEVOTHYROXINE SODIUM 0.112 MG TABLET PO SCH (07:00)
[2017-03-15 08:00] VITALS: BP 137/63; PULSE 74; RESP 18; TEMP 98.8; O2SAT 98
--- NOTE | 2017-03-15 08:00 | NUR ---
NOTE PT SITTING UP IN BED EATING HIS BREAKFAST. NO SOB/RESP DISTRESS OR PAIN/DISCOMFORT NOTED AT THIS TIME. IV IN LEFT FOREARM INTACT AND INFUSING IVF'S WELL AT THIS TIME. LEFT LEG ELEVATED ON PILLOW AT THIS TIME. CALL LIGHT WITHIN REACH.
[2017-03-15] MEDS: APIXABAN 2.5 MG TABLET PO SCH (08:50)
[2017-03-15] MEDS: CARBIDOPA/LEVODOPA CR 50/200 MG TAB PO SCH (08:50)
[2017-03-15] MEDS ORDERED: PANTOPRAZOLE SODIUM 40 MG TAB PO SCH (09:00)
[2017-03-15] MEDS ORDERED: FLUTICASONE/VILANTEROL 1 EACH BLST.W.DEV INH SCH (09:00)
[2017-03-15] MEDS ORDERED: LISINOPRIL 5 MG TABLET PO SCH (09:00)
[2017-03-15 09:03] LABS: BASOPHILS % (AUTO) 0.6 % (0.0-2.0); EOSINOPHILS # (AUTO) 0.4 K/uL (0.0-0.4); HEMATOCRIT 29.5 % (36-54); HEMOGLOBIN 9.1 g/dL (14.0-18.0); LYMPHOCYTES # (AUTO) 0.9 K/uL (1.0-5.5); LYMPHOCYTES % (AUTO) 16.7 % (20.5-51.5); MEAN CORPUSCULAR HEMOGLOBIN 24 pg (27-31); MEAN CORPUSCULAR HGB CONC 31 % (32-36); MEAN CORPUSCULAR VOLUME 79 fL (79.0-98.0); MONOCYTES # (AUTO) 0.6 K/uL (0.0-1.0); MONOCYTES % (AUTO) 10.8 % (1.7-9.3); NEUTROPHILS # (AUTO) 3.6 K/uL (1.8-7.7); NEUTROPHILS % (AUTO) 64.9 % (40.0-70.0); PLATELET COUNT (AUTO) 234 K/uL (130-430); RED BLOOD CELL COUNT(AUTO) 3.76 MIL/uL (4.2-6.2); RED CELL DISTRIBUTION WIDTH 16.6 % (9.0-15.0); WHITE BLOOD COUNT (AUTO) 5.5 K/uL (4.8-10.8)
[2017-03-15 09:21] LABS: ANION GAP 4 (5-15); CALCIUM 8.8 mg/dL (8.4-11.0); CHLORIDE 108 mmol/L (98-107); GLUCOSE 121 mg/dL (70-99); POTASSIUM 4.1 mmol/L (3.5-5.1); SODIUM SERUM 141 mmol/L (136-145); UREA NITROGEN, BLOOD 23 mg/dL (8-21)
[2017-03-15 09:26] LABS: ALANINE AMINOTRANSFERASE 18 U/L (12-78); ALBUMIN 2.8 g/dL (3.4-4.8); ASPARTATE AMINOTRANSFERASE 31 U/L (10-37); TOTAL BILIRUBIN 0.3 mg/dL (0.0-1.0); TOTAL PROTEIN, SERUM 6.7 g/dL (6.4-8.3)
--- NOTE | 2017-03-15 10:00 | NUR ---
NOTE DR HUERTA ON THE FLOOR AND ASSESSMENT OF PT WAS DONE AND COMPLETED AT 0845AM. PT RESTING IN BED. NO NEEDS NOTED. CALL LIGHT WITHIN REACH.
--- NOTE | 2017-03-15 10:14 | NUR ---
CALLED [facility] CM OF HCP, RE: TRANSFER TO SNF. CM RETAIL SALES CLERK WILL CALL ME BACK ONCE ARRANGEMENT HAS BEEN FINALIZED
[2017-03-15 11:37] VITALS: BP 125/63; PULSE 78; RESP 18; TEMP 98.1; O2SAT 96
--- NOTE | 2017-03-15 12:00 | NUR ---
NOTE PT'S DAUGHTER DANE WAS ON THE FLOOR AT 1045AM AND SPOKE TO DR HUERTA. QUESTIONS/CONCERNS WERE ANSWERED ABOUT DISCHARGE TO SNF AND PLAN OF CARE AT THIS TIME. PT'S DAUGHTER DANE WAS NOTIFIED OF PT'S TRANSFER TO [facility] AT 1137AM VIA CELL PHONE . PT OKAY WITH THE TRANSFER TO [facility]. BUS VAN DRIVER SYLVIA NOTIFIED. CALL LIGHT WITHIN REACH. NO NEEDS NOTED.
[2017-03-15 12:18] VITALS: BP 123/57; PULSE 74; RESP 18; TEMP 96.8; O2SAT 97
--- NOTE | 2017-03-15 14:20 | NUR ---
NOTE PT'S DISCHARGE PACKET READY AND REPORT WAS GIVEN TO AFSHAN RN AT [facility] AT THIS TIME. PT'S IV WAS DC'D AT THIS TIME. IV SITE HAS NO REDNESS/SWELLING/BLEEDING/TENDERNESS AT THIS TIME. PT DRESSED IN STREET CLOTHES AND ALL BELONGINGS WERE PACKED. SIDE TABLE AND DRAWERS CHECKED AT THIS TIME WELL FOR PT'S BELONGINGS. AMBULANCE SCHEDULED TO ARRIVE AT 1430. CALL LIGHT WITHIN REACH.
[2017-03-15 16:05] VITALS: BP 120/61; PULSE 69; RESP 16; TEMP 97.8; O2SAT 95
--- NOTE | 2017-03-15 16:06 | NUR ---
NOTE MEDIC 1 EMT/AMBULANCE ON THE FLOOR. REPORT GIVEN TO EMT AT THIS TIME. DISCHARGE PACKET GIVEN TO EMT TO GIVE TO [facility] FOR CONTINUATION OF CARE. PT ON GURNEY AND WITH ALL BELONGINGS OFF THE FLOOR AT THIS TIME. NO SOB/RESP DISTRESS OR PAIN/DISCOMFORT NOTED AT THIS TIME. PT STABLE. NO NEEDS NOTED.
== END 2017-03-15 16:06 | DRG 602 ==
LOC: SED 11:45 → SMU 13:47
PROVIDERS: ADMIT Internal Medicine Hospice and Palliative Medicine; ATTEND Internal Medicine Hospice and Palliative Medicine
DX: L03.119 Cellulitis of unspecified part of limb (principal); N17.0 Acute kidney failure with tubular necrosis; I82.401 Acute embolism and thrombosis of unspecified deep veins of right lower extremity; J45.909 Unspecified asthma, uncomplicated; I10 Essential (primary) hypertension; F03.90 Unspecified dementia, unspecified severity, without behavioral disturbance, psychotic disturbance, mood disturbance, and anxiety; E11.9 Type 2 diabetes mellitus without complications; K21.9 Gastro-esophageal reflux disease without esophagitis; N40.0 Benign prostatic hyperplasia without lower urinary tract symptoms; E78.5 Hyperlipidemia, unspecified; E03.9 Hypothyroidism, unspecified; Z86.718 Personal history of other venous thrombosis and embolism; Z79.899 Other long term (current) drug therapy
CPT/HCPCS: 36415; 80053; 83605; 85025; 85610-TC; 85730-TC; 86886; 86900; 86901; 87040-TC; 93005; 93971; 99285; J3370; J7050

== ENCOUNTER 2017-04-22 19:09 | Emergency (ER) | payer OTHER ==
[2017-02-01 14:03] VITALS: Ht 177.8 cm; Wt 73.5 kg
[~2017-04-22] VITALS: Ht 177.8 cm; Wt 73.5 kg
[~2017-04-22 19:09] MED LIST changes: +CARB-64 PO; +FLUT1DIS3 INH; +LISI-209 PO; +MONT10TA25 PO; +PRIM50TA27 PO; +SIMV20TA2 PO
[2017-04-22 19:10] VITALS: BP 132/71; PULSE 84; RESP 21; TEMP 99.1; O2SAT 96
[2017-04-22 21:50] LABS: ANION GAP 6 (5-15); BASOPHILS % (AUTO) 0.3 % (0.0-2.0); CALCIUM 8.7 mg/dL (8.4-11.0); CHLORIDE 102 mmol/L (98-107); CREATININE 1.54 mg/dL (0.55-1.30); EOSINOPHILS # (AUTO) 0.2 K/uL (0.0-0.4); EOSINOPHILS % (AUTO) 2.4 % (0.0-4.0); GLUCOSE 123 mg/dL (70-99); HEMATOCRIT 26.6 % (36-54); HEMOGLOBIN 8.3 g/dL (14.0-18.0); LYMPHOCYTES # (AUTO) 1.2 K/uL (1.0-5.5); LYMPHOCYTES % (AUTO) 15.8 % (20.5-51.5); MEAN CORPUSCULAR HEMOGLOBIN 25 pg (27-31); MEAN CORPUSCULAR HGB CONC 31 % (32-36); MEAN CORPUSCULAR VOLUME 79 fL (79.0-98.0); MONOCYTES # (AUTO) 1.1 K/uL (0.0-1.0); MONOCYTES % (AUTO) 14.7 % (1.7-9.3); NEUTROPHILS # (AUTO) 4.9 K/uL (1.8-7.7); NEUTROPHILS % (AUTO) 66.8 % (40.0-70.0); PLATELET COUNT (AUTO) 249 K/uL (130-430); RED BLOOD CELL COUNT(AUTO) 3.37 MIL/uL (4.2-6.2); SODIUM SERUM 135 mmol/L (136-145); UREA NITROGEN, BLOOD 20 mg/dL (8-21); WHITE BLOOD COUNT (AUTO) 7.4 K/uL (4.8-10.8)
[2017-04-22 21:55] LABS: ALANINE AMINOTRANSFERASE 7 U/L (12-78); ALBUMIN 2.8 g/dL (3.4-4.8); ASPARTATE AMINOTRANSFERASE 16 U/L (10-37); TOTAL BILIRUBIN 0.3 mg/dL (0.0-1.0); TOTAL PROTEIN, SERUM 6.9 g/dL (6.4-8.3)
[2017-04-22 22:21] VITALS: BP 128/72; PULSE 78; RESP 16; TEMP 98.2; O2SAT 98
== END 2017-04-22 22:21 | disposition home or self-care (01) ==
LOC: SED 19:09
DX: B35.6 Tinea cruris (principal); L03.314 Cellulitis of groin; J45.909 Unspecified asthma, uncomplicated; E11.9 Type 2 diabetes mellitus without complications; K21.9 Gastro-esophageal reflux disease without esophagitis; I10 Essential (primary) hypertension; E78.5 Hyperlipidemia, unspecified; E03.9 Hypothyroidism, unspecified; N40.0 Benign prostatic hyperplasia without lower urinary tract symptoms
CPT/HCPCS: 36415; 80053; 83605; 85025; 87040-TC; 99284

== ENCOUNTER 2017-11-10 08:22 | Inpatient (IN) | payer OTHER ==
[~2017-11-10] VITALS: Ht 177.8 cm; Wt 78.9 kg
[~2017-11-10 08:22] MED LIST changes: -HYDR12.585 PO; -TRIA50CA PO
--- NOTE | 2017-11-10 08:25 | NUR ---
Pt placed in bed 6 by BLS, report endorsed to Zana SANTIAGO
[2017-11-10 08:28] VITALS: BP_SYST 127
--- NOTE | 2017-11-10 08:44 | NUR ---
ER Dr. Whittaker at bedside examining patient.
[2017-11-10] MEDS ORDERED: ASPIRIN 325 MG TABLET PO ONE (08:45)
--- NOTE | 2017-11-10 08:46 | NUR ---
Pt presens to ER c/o generalized weakness and cough for past x 2 days. Pt denies pain, N/V/D and denies fever. Pt states history of PVD, ANEMIA, BPH, CKD, R LEG DVT, ASTHMA. Pt has non productive cough and minor expiratory wheezing. No acute distress noted. AOX4.
--- NOTE | 2017-11-10 08:50 | NUR ---
EKG done at bedside and results given to Dr. Whittaker for interpretation.
--- NOTE | 2017-11-10 08:55 | NUR ---
Pt medicated w/ Aspirin 325mg. Pt tolerated well.
[2017-11-10] MEDS ORDERED: methylPREDNISolone SOD SUCC/PF 62.5 MG/ML VIAL IVP ONE (09:00)
[2017-11-10] MEDS ORDERED: IPRATROPIUM BROM 0.5 MG/2.5 ML VIAL.NEB (ATROVENT) IH ONE (09:00)
[2017-11-10] MEDS ORDERED: ALBUTEROL SULFATE 0.083% 2.5 MG/3 ML VIAL.NEB IH ONE (09:00)
--- NOTE | 2017-11-10 09:05 | NUR ---
# 20 gauge angiocath placed to L FOREARM. Use of asceptic technique. Opsite placed over site. Blood return noted. Blood for lab drawn from site. Flushed with 10 cc of normal saline. No evidence of infiltration noted. Patient tolerated well.
--- NOTE | 2017-11-10 09:45 | NUR ---
Pt medicated with Solumedrol 125mg IVP. Pt tolerated well. Continue to monitor.
[2017-11-10 09:51] LABS: INR 1.1 (0.80-1.20); PROTHROMBIN TIME 10.9 SECS (9.5-12.5)
[2017-11-10 09:55] LABS: HEMATOCRIT 30.2 % (36-54); HEMOGLOBIN 9.4 g/dL (14.0-18.0); MEAN CORPUSCULAR HEMOGLOBIN 25 pg (27-31); MEAN CORPUSCULAR HGB CONC 31 % (32-36); MEAN CORPUSCULAR VOLUME 79 fL (79.0-98.0); PLATELET COUNT (AUTO) 169 K/uL (130-430); RED BLOOD CELL COUNT(AUTO) 3.82 MIL/uL (4.2-6.2); WHITE BLOOD COUNT (AUTO) 7.4 K/uL (4.8-10.8)
[2017-11-10 10:08] LABS: ALANINE AMINOTRANSFERASE 9 U/L (12-78); ALBUMIN 3.3 g/dL (3.4-4.8); ANION GAP 10 (5-15); ASPARTATE AMINOTRANSFERASE 59 U/L (10-37); CALCIUM 8.6 mg/dL (8.4-11.0); CHLORIDE 103 mmol/L (98-107); CREATININE 1.64 mg/dL (0.55-1.30); GLUCOSE 98 mg/dL (70-99); POTASSIUM 3.7 mmol/L (3.5-5.1); SODIUM SERUM 137 mmol/L (136-145); TOTAL BILIRUBIN 0.4 mg/dL (0.0-1.0); UREA NITROGEN, BLOOD 37 mg/dL (8-21)
[2017-11-10 10:12] LABS: ATYPICAL LYMPHOCYTES % 6 % (0-0); BASOPHILS % (MANUAL) 0 % (0-2); EOSINOPHILS % (MANUAL) 0 % (0-7); LYMPHOCYTES % (MANUAL) 19 % (20-46); MONOCYTES % (MANUAL) 17 % (0-11)
--- NOTE | 2017-11-10 10:30 | NUR ---
ER Dr. Whittaker at bedside reviewing results and plan of action with pt.
[2017-11-10 10:41] LABS: CKMB RELATIVE INDEX 0.3 (0.0-2.9); CREATINE KINASE MB 4.7 ng/mL (0-3.6)
[2017-11-10] MEDS ORDERED: MAG-AL HYDROX/SIMETH 30 ML UDC PO ONE (11:45)
[2017-11-10] MEDS ORDERED: ONDANSETRON HCL 4 MG/2 ML VIAL IVP PRN (11:45)
[2017-11-10] MEDS ORDERED: NITROGLYCERIN 0.4 MG TAB.SUBL SL PRN (11:45)
[2017-11-10] MEDS ORDERED: ACETAMINOPHEN 325 MG TABLET PO PRN ×2 (11:45)
--- NOTE | 2017-11-10 11:45 | NUR ---
Admission orders received from Dr. Cabrera. Pt will be admitted to tele. Will contact tele floor for room assignment.
--- NOTE | 2017-11-10 12:57 | NUR ---
ADMISSION NOTE Received patient from ER via edwige, received report from Zana SANTIAGO. Patient admitted with diagnosis of weakness/elevated troponin. Patient oriented to hospital routine, call light, toileting and safety-patient verbalized understanding.
--- NOTE | 2017-11-10 13:00 | NUR ---
Patient will be admitted to care of Dr. Cabrera. Admitted to tele unit. Will go to room 112B. Belongings list completed. Summary report printed. Report will be given at bedside.
[2017-11-10 13:07] VITALS: BP_SYST 104
--- NOTE | 2017-11-10 13:30 | NUR ---
INITIAL NOTE PT RESTING, AROUSES TO NAME AND GENTLY TOUCH, ALERT AND ORIENTED 1/2, ABLE TO STATE HIS NAME, WHERE HE CAME FROM, HAS TO ORIENTED TO WHAT HOSPITAL HE IS AT AND WHY, NOTED TO BE VERY TIRED, DRY COUGH, AND EXPIRATORY WHEEZE NOTED, ON ROOM AIR, VSS, IV TO LFA 20 G SALINE LOCKED, WOUND ON TOP OF HEAD NOTED, CLING WRAP NOTED TO BILATERAL LOWER EXTREMITIES PER FAMILY REPORT FACITY DOES THAT FOR EDEMA, SKIN INTACT, PT ORIENTED TO ROOM AND USE OF CALL LIGHT, BED ALARM ON, SIDE RAILS UP X2, ROOM LOCATED NEAR NURSING STATION, WILL MONITOR PT CLOSELY
[2017-11-10] MEDS ORDERED: *LOVENOX 1MG/KG Q24H/PHARMACY XX PRN (14:15)
--- NOTE | 2017-11-10 14:30 | NUR ---
PATIENT PICKED UP FOR CT OF HEAD AND BRAIN, RESTING, [facility]
[2017-11-10] MEDS ORDERED: ENOXAPARIN SODIUM 80 MG/0.8 ML SYRINGE SUBCUT ONE (14:45)
--- NOTE | 2017-11-10 14:45 | NUR ---
PATIENT RETURNED FROM CT HEAD/BRAIN, SITUATED IN ROOM, PT SLEEPING, AROUSES TO NAME AND GENTLE TOUCH, PT REFUSES FOOD AT THIS TIME, STATES HE IS JUST TIRED, BED ALARM ON, CALL LIGHT WITHIN REACH, WILL MONITOR PT CLOSELY
[2017-11-10] MEDS: LEVOFLOXACIN 500 MG/D5W 100 ML IV SCH (14:56)
[2017-11-10 16:21] VITALS: BP_SYST 109
--- NOTE | 2017-11-10 16:22 | NUR ---
ROUNDS PT LAYING IN BED, RESTING, EYES CLOSED, AROUSES TO NAME AND LIGHT STIMULI, PT DENIES ANY NEEDS AT THIS TIME, STATES HE IS JUST VERY TIRED AND WANTS TO SLEEP, PT SLIGHTLY REPOSITIONED TO OPPOSITE SIDE, TOLERATED WELL, CALL LIGHT WITHIN REACH, SAFETY PRECAUTIONS IN PLACE, WILL CONTINUE TO MONITOR PT CLOSELY
[2017-11-10] MEDS: MONTELUKAST 10 MG TABLET PO SCH (17:20)
--- NOTE | 2017-11-10 17:30 | NUR ---
MED PASS PT GIVEN MEDICATIONS CRUSHED IN APPLE SAUCE DUE TO PATIENT BEING DIFFICULT TO AROUSE, PT POSITIONED SITTING UP, ASSISTED TO EAT APPLESAUCE WITH MEDICATION, AND PEACHES, TOLERATED WELL, PT STATES HE IS FULL HE WILL WORK ON DINNER TRAY LATER. TO PLEASE LEAVE AT BEDSIDE. CALL LIGHT WITHIN REACH, BED ALARM ON, WILL FOLLOW UP
--- NOTE | 2017-11-10 18:29 | NUR ---
CLOSING NOTE PT LAYING IN BED, RESTING, EASY TO AROUSE, NO S/S OF ACUTE DISTRESS OR PAIN, VSS, IV TO LFA INTACT, SALINE LOCKED, ALL NEEDS ATTENDED TO THROUGHOUT SHIFT, SAFETY PRECAUTIONS MAINTAINED, CALL LIGHT WITHIN REACH, WILL CONTINUE TO MONITOR AND GIVE REPORT TO FOLLOWING SHIFT
[2017-11-10 20:00] VITALS: BP_SYST 97
--- NOTE | 2017-11-10 20:00 | NUR ---
Initial Note Received patient asleep but arousable. Awake, alert and oriented to name only. Daughter at the bedside. Confirm with daughter that patient will be FULL CODE at this time. Will endorse. No SOB noted. On Room air but non productive cough. Denies any pain or n/v at this time. VS stable. Bedbound and will repositioned every 2 hours. Heplock patent and intact. BLE edema and damian wrap noted. Elevated BLE on pillows. Due meds crushed and given with apple sauce and tolerated well. Sinus Arrythmia on monitor. Ruptured blisters x2 noted on head with dressing CDI. Needs attended. Call light within reach. Care and monitoring followed per protocol. Kept warm and comfortable. Tayla from lab called to report Troponin level of 0.111. Paged Dr. Cabrera.
--- NOTE | 2017-11-10 20:10 | NUR ---
kath Cabrera for orders spoke with Hien.
--- NOTE | 2017-11-10 20:20 | NUR ---
Dr. Rick Cabrera called back and notified him of troponin level of 0.111 from 0.176. No new order was made. Charge nurse aware.
[2017-11-10] MEDS: DONEPEZIL HCL 5 MG TABLET (ARICEPT) PO SCH (20:37)
[2017-11-10] MEDS: CARBIDOPA/LEVODOPA CR 50/200 MG TAB PO SCH (20:37)
[2017-11-10] MEDS: PRIMIDONE 50 MG TABLET PO SCH (20:37)
[2017-11-10] MEDS ORDERED: ZOLPIDEM TARTRATE 5 MG TABLET PO PRN (21:00)
--- NOTE | 2017-11-10 22:00 | NUR ---
RN Note Patient arousable. No SOB noted. Repositioned. Kept warm and comfortable.
--- NOTE | 2017-11-10 23:00 | NUR ---
RN Note Dr. Cabrera arrived. Asked if he wants to be called for the troponin level to be drawn this am. He said not to call him if troponin level is less than the previous result. Charge nurse Loretta calle and aware.
[2017-11-10 23:29] VITALS: BP_SYST 116
[2017-11-11] VITALS (7 sets, daily range): BP systolic 36–136
--- NOTE | 2017-11-11 | NUR ---
RN Note Sleeping at this time. Arousable. Repositioned. No distress noted. Kept warm and comfortable.
--- NOTE | 2017-11-11 02:00 | NUR ---
RN Note Awake and alert. Repositioned. No complaint. Kept warm and comfortable.
--- NOTE | 2017-11-11 03:00 | NUR ---
Troponin 0.086 Julienne from the lab called re Troponin level of 0.086. Dr. Cabrera said not to call him if troponin level is less than the previous result which is 0.111. Charge nurse aware.
--- NOTE | 2017-11-11 04:00 | NUR ---
RN Note Arousable. Offered urinal to urinate. waited for about 5 minutes and was able to urinate about 100ml bita colored urine. Bladder scan done, no residual noted several times. Patient said that he doesn't usually urinate at night. He urinate before he goes to bed. Will continue to monitor and will endorse to monitor urine output. Repositioned. Kept comfortable.
[2017-11-11] MEDS: LEVOTHYROXINE SODIUM 0.112 MG TABLET PO SCH (06:04)
--- NOTE | 2017-11-11 06:28 | NUR ---
End Note No changes from previous assessment. Afebrile. VS stable. No complain of pain, SOB or n/v throughout the night. Repositioned. Incontinent x2. Had BM this am. Skin care and barrier cream applied on perianal and groin/scrotal area. Coughs occasionally. Aspiration precaution. Dressing on head CDI. For EKG today. Latest Trop was 0.086. Sinus Arrythmia on monitor. Needs attended. Care and monitoring provided per protocol. Kept clean, dry and comfortable.
--- NOTE | 2017-11-11 08:00 | NUR ---
RN OPENING NOTE PATIENT RESTING ON BED ALERT ORIENTED X 4 , VERY PLEASANT WITH A VERY POSITIVE ATTITUDE, PATIENT HAS A BM, PATIENT WAS CLEANED UP, BED WAS MADE FOR HIM, patient vitals were measured and they are stable. patient was then assessed,will follow up with medication administration at 0900.
[2017-11-11] MEDS: ENOXAPARIN SODIUM 80 MG/0.8 ML SYRINGE SUBCUT SCH (08:44)
[2017-11-11] MEDS: DOCUSATE SODIUM 100 MG CAPSULE PO SCH (08:44)
[2017-11-11] MEDS: ASPIRIN 81 MG TAB.CHEW PO SCH (08:44)
[2017-11-11] MEDS: CARBIDOPA/LEVODOPA CR 50/200 MG TAB PO SCH ×2 (08:44→21:00)
[2017-11-11] MEDS: FLUTICASONE/VILANTEROL 1 EACH BLST.W.DEV INH SCH (08:48)
--- NOTE | 2017-11-11 08:50 | NUR ---
Nutrition Update Kristofer Scale 15 noted. Pt admitted for weakness, electrocardiogram changes positive troponin Diet: Regular diet BMI: 25 kg/m2 RD to follow per nutrition care standards.
--- NOTE | 2017-11-11 10:00 | NUR ---
RN NOTES patient resting on bed, has a second BM, brown pasty no bleeding , patient's was cleaned up and his daughter called regarding the patient hospice consult that Dr. Jimenez talked to her about.. . patient denies pain or discomfort. will follow up.
--- NOTE | 2017-11-11 10:07 | NUR ---
JUAN/TRINI/IZAIAH: Faxed Hospice order to [phone]. Filed fax confirmation in binder.
[2017-11-11 10:13] LABS: BASOPHILS % (AUTO) 0.1 % (0.0-2.0); HEMATOCRIT 33.5 % (36-54); HEMOGLOBIN 10.4 g/dL (14.0-18.0); LYMPHOCYTES # (AUTO) 1.1 K/uL (1.0-5.5); LYMPHOCYTES % (AUTO) 12.7 % (20.5-51.5); MEAN CORPUSCULAR HEMOGLOBIN 25 pg (27-31); MEAN CORPUSCULAR HGB CONC 31 % (32-36); MEAN CORPUSCULAR VOLUME 80 fL (79.0-98.0); MONOCYTES # (AUTO) 0.7 K/uL (0.0-1.0); MONOCYTES % (AUTO) 7.6 % (1.7-9.3); NEUTROPHILS # (AUTO) 6.9 K/uL (1.8-7.7); NEUTROPHILS % (AUTO) 79.6 % (40.0-70.0); PLATELET COUNT (AUTO) 186 K/uL (130-430); RED BLOOD CELL COUNT(AUTO) 4.19 MIL/uL (4.2-6.2); RED CELL DISTRIBUTION WIDTH 17.3 % (9.0-15.0); WHITE BLOOD COUNT (AUTO) 8.7 K/uL (4.8-10.8)
[2017-11-11] MEDS ORDERED: IPRATROPIUM BROM 0.5 MG/2.5 ML VIAL.NEB (ATROVENT) INH PRN (10:15)
[2017-11-11] MEDS ORDERED: ALBUTEROL SULFATE 0.083% 2.5 MG/3 ML VIAL.NEB INH PRN (10:15)
--- NOTE | 2017-11-11 10:42 | NUR ---
RN NOTE LAB CALLED THE PATIENT TROPONIN IS 0.08. will inform the M.D of the result.
[2017-11-11 10:43] LABS: SODIUM SERUM 141 mmol/L (136-145)
[2017-11-11 10:44] LABS: ANION GAP 11 (5-15); CALCIUM 8.5 mg/dL (8.4-11.0); CHLORIDE 106 mmol/L (98-107); CREATININE 1.65 mg/dL (0.55-1.30); GLUCOSE 137 mg/dL (70-99); POTASSIUM 3.9 mmol/L (3.5-5.1); TOTAL BILIRUBIN 0.3 mg/dL (0.0-1.0); UREA NITROGEN, BLOOD 44 mg/dL (8-21)
[2017-11-11 10:45] LABS: ALANINE AMINOTRANSFERASE 15 U/L (12-78); ASPARTATE AMINOTRANSFERASE 76 U/L (10-37)
--- NOTE | 2017-11-11 10:45 | NUR ---
RN Note Kirstin is aware of the result of troponin of 0.08, patient still resting on bed, denies pain or discomfort. daughter called regarding his hospice referral.
[2017-11-11] MEDS: IPRATROPIUM BROM 0.5 MG/2.5 ML VIAL.NEB (ATROVENT) INH SCH ×3 (11:00→23:00)
[2017-11-11] MEDS: ALBUTEROL SULFATE 0.083% 2.5 MG/3 ML VIAL.NEB INH SCH ×3 (11:00→23:00)
--- NOTE | 2017-11-11 12:00 | NUR ---
WOUND EVALUATION: Wound Consult received from Dr. Jimenez. Thank you, Dr. Jimenez, for the consult. Patient received in a Ramsey Bed with a mattress, awake, alert, and oriented. Patient is unable to turn independently. Kristofer Score is a 15. Past Medical History: Hypertension, COPD, Asthma, BPH, Parkinson's Disease, Hyperlipidemia, Dementia, Hypothyroidism, Squamous Cell Carcinoma of the skin, history of TIA in 2012, and DVT. Recent Labs: WBC 8.7, RBC 4.19, hemoglobin 10.4, hematocrit 33.5, BU and 44, creatinine 1.65, glucose 137, albumin 3.0, elevated troponin. No microbiology reports. Intrinsic factors that delay wound healing: COPD, asthma, hypoalbuminemia. Extrinsic factors that delay wound healing: Decreased mobility. Wound Assessment: 1. Superior parietal cranium, right lateral to wound 2: Wound, present on admission. Wound bed is 100% red tissue. No odor, no drainage. Measures 1.4 cm x 1.4 cm (two wounds measured as one). Lesion is elevated. Dry yellow flaky lesions present anterior to wound. 2. Superior parietal cranium, left lateral to wound 1: Wound, present on admission. Wound bed is 90% red tissue, 10% black tissue. No odor, no drainage. Measures 2.5 cm x 2.0 cm. Lesion is elevated.Dry yellow flaky lesions present anterior to wound. Recommend: Cleanse wounds with normal saline. Pat dry. Cover with foam dressing. Perform wound care daily, and as needed for dressing soiling or dislodgment. Also recommend: Encourage and assist patient with repositioning every 2 hours with pillow support, and off-load pressure areas with pillows for pressure re-distribution. Offload, elevate and float bilateral heels with one pillow lengthwise under each extremity times. Perform skin care and monitor skin integrity Q shift. Use moisture barrier cream on buttocks and other moisture susceptible areas QID and as needed for soiling.
--- NOTE | 2017-11-11 12:00 | NUR ---
RN ROUNDS PATIENT RESTING ON BED, ALEC THE WOUND CARE CAME OVER AND INSPECTED THE PATIENT SCALPS' WOUNDS. WAS CLEANSED WITH NORMAL SALINE, APPLIED HYDROGEL AND COVERED WITH OPTIFOAM., PATIENT TOLERATED IT VERY WELL NO COMPLAINS OF PAIN OR DISCOMFORT. WILL FOLLOW UP
[2017-11-11] MEDS: LEVOFLOXACIN 500 MG/D5W 100 ML IV SCH (13:32)
--- NOTE | 2017-11-11 14:00 | NUR ---
RN ROUNDS PATIENT RESTING ON BED, DENIES PAIN OR DISCOMFORT. PATIENT WAS GIVEN HIS IVPB OF LEVAQUIN, PATIENT WAS REPOSITIONED. WILL FOLLOW UP
--- NOTE | 2017-11-11 16:00 | NUR ---
RN ROUNDS PATIENT RESTING ON THE BED WAS REPOSITIONED AND HIS BED WAS MADE, PATIENT'S CHUCKS WERE CHANGED AFTER HE VOIDED ON HIMSELF, PATIENT WAS CLEANED AND Z GUARD WAS APPLIED TO HIS PERINEAL AREA AND SCROTUM.
--- NOTE | 2017-11-11 18:00 | NUR ---
RN CLOSING NOTES PATIENT IS RESTING IN BED, GOT HIS SINGULAIR, FEEL VERY POSITIVE ABOUT LEAVING THE HOSPITAL. THE HOSPICE SERVICE ARRIVED HERE AND TALKED WITH THE PATIENT'S WELL WITH HIS DAUGHTER. AND HER . DR. HUERTA WAS MADE AWARE OF THEIR PRESENCE IN THE HOSPITAL. PATIENT WAS REPOSITIONED IN THE BED AND WILL ENDORSE THE FOLLOW UP TO THE NEXT SHIFT
[2017-11-11] MEDS: MONTELUKAST 10 MG TABLET PO SCH (18:06)
--- NOTE | 2017-11-11 19:03 | NUR ---
ADMITTED TO [facility] ON 11.10.2017 COUGH, WEAKNESS, ELEVATED TROPONIN., RT FACIAL DROOP. H/O PARKINSONS DIS. DEMENTIA. SQUAMOUS CELL CARCINOMA OF THE SKIN. CT HEAD NEG. PLACED A CALL TO DTR SANDRA REYES [phone]. PATIENT RESIDES AT [facility] SINCE JANUARY 2017. PT. IS UNABLE TO AMBULATE. DIFFICULTY TRANSFERRING FROM BED TO CHAIR. W/C BOUND. EXPLAINED TO DTR HOSPICE CARE WITH [facility] . HOSPICE EVAL 11/11/2017. WILL CONTINUE TO FF MICHELLE RN/CM T [phone] Signatures Electronically signed by : Michelle Bautista R.N.; Nov 11 2017 6:58PM PST (Author)
--- NOTE | 2017-11-11 20:07 | NUR ---
PM Opening Notes Received patient on bed, awake, alert with confusion and verbally responsive with no sign of respiratory distress and no complain of pain at this time. IV site saline lock on the left forearm is intact with no s/x. of infiltration at this time. Will continue to monitor. Call light within reach.
[2017-11-11] MEDS: PRIMIDONE 50 MG TABLET PO SCH (21:00)
[2017-11-11] MEDS: DONEPEZIL HCL 5 MG TABLET (ARICEPT) PO SCH (21:00)
--- NOTE | 2017-11-11 22:05 | NUR ---
Rounds Notes Patient on bed sleeping with no sign of respiratory distress and no complain of pain at this time. Will continue to monitor. Call light within reach.
[2017-11-12] VITALS: BP_SYST 135
--- NOTE | 2017-11-12 02:07 | NUR ---
Rounds Notes Patient woke up and sit up on the edge of his bed urinating on the urinal. Emptied his urinal and patient lay down on his bed. No sign of pain or discomfort at this time. Will continue to monitor. Call light within reach.
[2017-11-12] MEDS: ALBUTEROL SULFATE 0.083% 2.5 MG/3 ML VIAL.NEB INH SCH ×4 (03:00→15:35)
[2017-11-12] MEDS: IPRATROPIUM BROM 0.5 MG/2.5 ML VIAL.NEB (ATROVENT) INH SCH ×4 (03:00→15:35)
--- NOTE | 2017-11-12 04:07 | NUR ---
Rounds Notes Patient on bed remains sleeping with no sign of respiratory distress and no complain of pain at this time. Will continue to monitor. Call light within reach.
[2017-11-12] MEDS: LEVOTHYROXINE SODIUM 0.112 MG TABLET PO SCH (06:01)
--- NOTE | 2017-11-12 06:15 | NUR ---
Rounds Notes Patient on bed, awake, alert with confusion and verbally responsive looking for his pants and finished urinating on the urinal at this time. No sign of respiratory distress and no complain of pain at this time. Told patient that I will look for his pants and emptied his urinal. Will continue to monitor. Call light within reach.
--- NOTE | 2017-11-12 06:55 | NUR ---
Closing Notes Patient on bed awake, alert with confusion and verbally responsive at this time. No sign of respiratory distress and no complain of pain at this time. All needs attended and met by staff. Call light within reach.
[2017-11-12 08:00] VITALS: BP_SYST 109; BP_SYST 145
--- NOTE | 2017-11-12 08:00 | NUR ---
Opening Note Report received form Dion MULLINS shift nurse. Patient is currently sitting up in bed. He is awake, however, is very confused. IV is on the LFA 20g, saline locked. Safety precautions are in place. Hospice eval is pending for today. Will continue to monitor.
--- NOTE | 2017-11-12 08:59 | NUR ---
HCP/TRINI/IZAIAH: Faxed order home on hospice to [phone]. Filed fax confirmation in binder.
[2017-11-12] MEDS: ENOXAPARIN SODIUM 80 MG/0.8 ML SYRINGE SUBCUT SCH (09:34)
[2017-11-12] MEDS: ASPIRIN 81 MG TAB.CHEW PO SCH (09:34)
[2017-11-12] MEDS: DOCUSATE SODIUM 100 MG CAPSULE PO SCH (09:34)
[2017-11-12] MEDS: CARBIDOPA/LEVODOPA CR 50/200 MG TAB PO SCH (09:34)
[2017-11-12] MEDS: FLUTICASONE/VILANTEROL 1 EACH BLST.W.DEV INH SCH (09:35)
--- NOTE | 2017-11-12 10:50 | NUR ---
RN Notes [facility] is here to evaluate the patient.
[2017-11-12 11:57] VITALS: BP_SYST 145
[2017-11-12 12:01] VITALS: BP_SYST 148
--- NOTE | 2017-11-12 12:30 | NUR ---
Rounds patient is eating lunch in bed. No signs of distress noted at the moment.
[2017-11-12] MEDS: LEVOFLOXACIN 500 MG/D5W 100 ML IV SCH (13:15)
--- NOTE | 2017-11-12 14:28 | NUR ---
Dietitian Recommendations * Recommend continuing regular, mechanical soft diet per MD * Consider Boost Plus BID if PO intakes do not improve LP, RD Please refer to Nutrition Assessment for details.
--- NOTE | 2017-11-12 14:30 | NUR ---
Rounds Patient is currently sleeping in bed. Bed alarm is in place. Will continue to monitor.
--- NOTE | 2017-11-12 15:53 | NUR ---
RN Notes Report given to Inga from [facility]. Patient will be returning to room 401.
--- NOTE | 2017-11-12 16:30 | NUR ---
Rounds Patient is resting in bed. Call light is within reach.
[2017-11-12 16:47] VITALS: BP_SYST 138
[2017-11-12] MEDS: MONTELUKAST 10 MG TABLET PO SCH (17:07)
--- NOTE | 2017-11-12 18:50 | NUR ---
Closing Note Patient is resting in bed. Currently waiting for ambulance to arrive.
== END 2017-11-12 21:37 | disposition hospice, home (50) | DRG 280 ==
LOC: SED 08:22 → STU 11:41
PROVIDERS: ADMIT Internal Medicine Hospice and Palliative Medicine; ATTEND Internal Medicine Hospice and Palliative Medicine
DX: I21.4 Non-ST elevation (NSTEMI) myocardial infarction (principal); I50.23 Acute on chronic systolic (congestive) heart failure; G20 Parkinson's disease; J44.9 Chronic obstructive pulmonary disease, unspecified; J45.901 Unspecified asthma with (acute) exacerbation; E11.9 Type 2 diabetes mellitus without complications; K21.9 Gastro-esophageal reflux disease without esophagitis; I11.0 Hypertensive heart disease with heart failure; I44.7 Left bundle-branch block, unspecified; I24.9 Acute ischemic heart disease, unspecified; F03.90 Unspecified dementia, unspecified severity, without behavioral disturbance, psychotic disturbance, mood disturbance, and anxiety; E03.9 Hypothyroidism, unspecified; E78.5 Hyperlipidemia, unspecified; N40.0 Benign prostatic hyperplasia without lower urinary tract symptoms; Z82.49 Family history of ischemic heart disease and other diseases of the circulatory system; Z86.718 Personal history of other venous thrombosis and embolism; Z85.828 Personal history of other malignant neoplasm of skin; Z86.73 Personal history of transient ischemic attack (TIA), and cerebral infarction without residual deficits; Z79.899 Other long term (current) drug therapy
CPT/HCPCS: 36415; 70450-TC; 71010; 80053; 82550-TC; 82553-TC; 84484; 85007; 85025; 85027; 85610-TC; 93005; 93306; 94640; 96374; 99285; J1650; J1956; J2930